=== PATIENT | female | born 2000 | race Asian ===

== ENCOUNTER 2022-09-12 19:23 | Emergency (ER) | payer BC ==
[2022-09-12 19:54] VITALS: BP 127/85; PULSE 90; RESP 18; TEMP 98; BMI 23.6
== END 2022-09-12 20:38 | disposition home or self-care (01) ==
LOC: FER 19:23
DX: S92.414A Nondisplaced fracture of proximal phalanx of right great toe, initial encounter for closed fracture (principal); W20.8XXA Other cause of strike by thrown, projected or falling object, initial encounter
CPT/HCPCS: 73630-TC-RT-FY; 99283-25

== ENCOUNTER 2024-08-28 04:37 | Emergency (ER) | payer BC ==
[2024-08-28 04:51] VITALS: RESP 16; TEMP 98.4; BMI 22.6
[2024-08-28] MEDS: SODIUM CHLORIDE 1,000 ML IV STA ×2 (04:53→05:35)
[2024-08-28] MEDS ORDERED: ONDANSETRON 4 MG/2 ML VIAL ONE (04:54)
[2024-08-28] MEDS ORDERED: ACETAMINOPHEN INJECTION 100 ML ONE (04:54)
[2024-08-28] MEDS: ONDANSETRON 4 MG/2 ML VIAL IVPB ONE (05:02)
[2024-08-28] MEDS: ACETAMINOPHEN 1000 MG/100 ML BAG IVPB ONE (05:02)
[2024-08-28] MEDS: LOPERAMIDE HCL 1 MG/5 ML UNIT DOSE CUP PO ONE (05:32)
[2024-08-28] MEDS ORDERED: LOPERAMIDE HCL 2 MG CAPSULE ONE (05:33)
[2024-08-28] MEDS ORDERED: KETOROLAC TROMETHAMINE 30 MG/1 ML VIAL ONE (05:37)
[2024-08-28] MEDS: KETOROLAC TROMETHAMINE 30 MG/1 ML VIAL IVPUSH ONE (05:40)
[2024-08-28 06:32] LABS: POTASSIUM 4.3 mmol/L (3.5-5.1)
[2024-08-28 06:34] LABS: CALCIUM 9.7 mg/dL (8.5-10.1)
[2024-08-28 06:35] LABS: ALBUMIN 4.4 g/dl (3.4-5.0); BLOOD UREA NITROGEN 16.7 mg/dL (7-18)
[2024-08-28 06:38] LABS: BASO % 0.2 % (0-2.0); BILIRUBIN,TOTAL 0.5 mg/dL (0.2-1); CREATININE 0.8 mg/dL (0.55-1.3); EOS % 5.1 % (0-4.5); HEMATOCRIT 45.4 % (32.4-45.2); HEMOGLOBIN 14.7 GM/dL (10.7-15.3); LYMPH % 5.7 % (8-40); MCH 27.6 pg (25.7-33.7); MCHC 32.4 g/dl (32.0-36.0); MEAN PLT VOLUME 7.6 fl (7.5-11.1); MONO % 7.5 % (3.8-10.2); NEUT % 81.5 % (42.8-82.8); PLATELET COUNT 378 10^3/uL (134-434); RBC 5.34 M/mm3 (3.60-5.2); RDW 13.4 % (11.6-15.6); TOT PROT 8.5 g/dl (6.4-8.2); WHITE BLOOD COUNT 10.4 K/mm3 (4.0-10.0)
[2024-08-28 06:50] LABS: HCG,QUALITATIVE URINE Negative
[2024-08-28 07:04] LABS: EPI CELLS 36 /uL (0-25.1); HYALINE CASTS 1 /uL (0-3.1); URINE APPEARANCE CLEAR; URINE BACTERIA 328 /uL (0-1359); URINE BILIRUBIN NEGATIVE (NEGATIVE); URINE COLOR YELLOW; URINE GLUCOSE (UA) NEGATIVE (NEGATIVE); URINE KETONE TRACE (NEGATIVE); URINE LEUK ESTERASE TRACE (NEGATIVE); URINE NITRITE NEGATIVE (NEGATIVE); URINE PROTEIN 1+ (NEGATIVE); URINE RBC 36 /uL (0-23.9); URINE UROBILINOGEN 0.2 mg/dL (0.2-1.0); URINE WBC 66 /uL (0-25.8)
[2024-08-28 07:09] VITALS: BP 94/65; PULSE 78
== END 2024-08-28 07:13 | disposition home or self-care (01) ==
LOC: FER 04:37
PROC: 3E033NZ Introduction of Analgesics, Hypnotics, Sedatives into Peripheral Vein, Percutaneous Approach (ICD-10-PCS; principal; 2024-08-28)
PROC: 3E0333Z Introduction of Anti-inflammatory into Peripheral Vein, Percutaneous Approach (ICD-10-PCS; 2024-08-28)
PROC: 3E033GC Introduction of Other Therapeutic Substance into Peripheral Vein, Percutaneous Approach (ICD-10-PCS; 2024-08-28)
PROC: 3E0337Z Introduction of Electrolytic and Water Balance Substance into Peripheral Vein, Percutaneous Approach (ICD-10-PCS; 2024-08-28)
PROC: 3E0337Z Introduction of Electrolytic and Water Balance Substance into Peripheral Vein, Percutaneous Approach (ICD-10-PCS; 2024-08-28)
DX: A08.4 Viral intestinal infection, unspecified (principal); R11.2 Nausea with vomiting, unspecified; R19.7 Diarrhea, unspecified; R10.84 Generalized abdominal pain; Z20.822 Contact with and (suspected) exposure to COVID-19
CPT/HCPCS: 0241U-QW; 36415; 80053; 81003; 84703; 85025; 99284-25; J0131